=== PATIENT | female | born 1970 | race Caucasian/White ===

== ENCOUNTER 2022-10-25 11:09 | Emergency (ER) | payer OTHER, SELFPAY ==
--- NOTE | ~2022-10-25 | XR_ITS ---
EXAMINATION: XR HAND, LEFT CLINICAL INFORMATION: Third and fifth digit pain. COMPARISON: None TECHNIQUE: PA, lateral, and oblique views of the left hand. An indicator arrow points to the fifth metacarpophalangeal joint. FINDINGS: The bones and soft tissues are normal. No fracture. Alignment is anatomic. Joint spaces are maintained. No erosions or soft tissue calcifications. XR/XR hand LT min 3V IMPRESSION: Unremarkable left hand. Specifically, the third and fifth digits appear intact.
--- NOTE | 2022-10-25 11:13 | ED_ITS ---
HPI - Extremity Injury (Upper) General Chief Complaint: Extremity Injury, Upper <Verónica Castro CNP - Last Filed: 10/25/22 11:16> Stated Complaint: fall l hand inj <Verónica Castro CNP - Last Filed: 10/25/22 11:16> Time Seen by Provider: 10/25/22 11:28 <Verónica Castro CNP - Last Filed: 10/25/22 11:16> Source: patient and RN notes reviewed <Juan Miguel Matthews - Last Filed: 10/25/22 12:17> Mode of arrival: ambulatory <Juan Miguel Matthews - Last Filed: 10/25/22 12:17> Limitations: no limitations <Juan Miguel Matthews - Last Filed: 10/25/22 12:17> History of Present Illness HPI narrative: Patient reports fall 2 days ago outside her home. She reports tripping on the concrete while trying to carry a blanket. She fell with her left hand outstretched. She reports suffering abrasions to the left hand which she wrapped herself with band-aids The patient also reports striking her right check on the ground after breaking her fall with her hand. She denies any loss of consciousness and reports he does not take blood thinners for any reason. She denies injuring her face despite the fall The patient also reports right knee pain relating to the fall 2 days ago. She has been ambulatory for the last 2 days <Juan Miguel Matthews - Last Filed: 10/25/22 12:17> MD complaint: injury to: left, hand and finger <Juan Miguel Matthews - Last Filed: 10/25/22 12:17> Onset (ago): day(s) (2) <Juan Miguel Matthews - Last Filed: 10/25/22 12:17> Other Extremity Injury: left: fingers (5th) and hand (left 4th and 5th MCP) <Juan Miguel Matthews - Last Filed: 10/25/22 12:17> Other injuries: RLE (right knee) <Juan Miguel Matthews - Last Filed: 10/25/22 12:17> Handedness: right <Juan Miguel Matthews - Last Filed: 10/25/22 12:17> Place: home <[facility] - Last Filed: 10/25/22 12:17> Severity: moderate <Juan Miguel OJoseliny - Last Filed: 10/25/22 12:17> Severity scale (1-10): 4 <Juan Miguel JohnsonYuriy - Last Filed: 10/25/22 12:17> Relieving factors: movement <Juan Miguel Matthews - Last Filed: 10/25/22 12:17> Exacerbating factors: movement of extremity <Juan Miguel Matthews - Last Filed: 10/25/22 12:17> Context: fall <Juan Miguel Matthews - Last Filed: 10/25/22 12:17> Associated symptoms: denies other symptoms <Juan Miguel Matthews - Last Filed: 10/25/22 12:17> Treatments prior to arrival: bandage <Juan Miguel Matthews - Last Filed: 10/25/22 12:17> Related Data Home Medications: Previous Rx's Medication Instructions Recorded ibuprofen 600 mg tablet 600 mg PO Q6H PRN pain #20 tabs 10/25/22 <Verónica Castro CNP - Last Filed: 10/25/22 11:16> Allergies/Adverse Reactions: Allergies Allergy/AdvReac Type Severity Reaction Status Date / Time Penicillins Allergy Rash Verified 10/25/22 11:13 <Verónica Castro CNP - Last Filed: 10/25/22 11:16> Review of Systems Constitutional: Constitutional: Denies fever(s) <Juan Miguel Matthews - Last Filed: 10/25/22 12:17> Musculoskeletal: Musculoskeletal: Reports as per HPI, Denies deformity, Reports arthralgias, Reports joint swelling and Reports limited range of motion <Juan Miguel Matthews - Last Filed: 10/25/22 12:17> PMF Past Medical History Attestation statement: The following information was validated with the patient. <Juan Miguel Matthews - Last Filed: 10/25/22 12:17> Source: nursing notes reviewed <Juan Miguel Matthews - Last Filed: 10/25/22 12:17> Social History Social History: Social History Advance Directives: No <Verónica Castro CNP - Last Filed: 10/25/22 11:16> Physical Exam Vital Signs: Vital Signs: Last Vital Signs Temp 97.2 F 10/25/22 11:14 Pulse 78 10/25/22 11:14 Resp 16 10/25/22 11:14 BP 134/75 10/25/22 11:14 Pulse Ox 98 10/25/22 11:14 O2 Del Method 10/25/22 11:14 BMI result Body Mass Index 32.8 <Verónica Castro [facility] - Last Filed: 10/25/22 11:16> Vital Signs: Last Vital Signs Temp 97.2 F 10/25/22 11:14 Pulse 78 10/25/22 11:14 Resp 16 10/25/22 11:14 BP 134/75 10/25/22 11:14 Pulse Ox 98 10/25/22 11:14 O2 Del Method 10/25/22 11:14 BMI result Body Mass Index 32.8 <Juan Miguel Matthews - Last Filed: 10/25/22 12:17> Const: General: cooperative, comfortable, no acute distress, well developed, alert, awake and Physically active; No acute distress <Juan Miguel Matthews - Last Filed: 10/25/22 12:17> Orientation/consciousness: patient oriented x3 <Juan Miguel Matthews - Last Filed: 10/25/22 12:17> Limitations: no limitations <Juan Miguel Matthews - Last Filed: 10/25/22 12:17> Neck: Neck: Yes normal visual inspection and Yes full ROM <Juan Miguel Matthews - Last Filed: 10/25/22 12:17> Skin: Other: Minor abrasions to the left 4th MCP area. No active bleeding and no surrounding erythema <Juan Miguel Matthews - Last Filed: 10/25/22 12:17> Trauma: abrasion <Juan Miguel Matthews - Last Filed: 10/25/22 12:17> Wounds: no wounds <Juan Miguel Matthews - Last Filed: 10/25/22 12:17> Neuro: General: patient oriented x3 <Juan Miguel Matthews - Last Filed: 10/25/22 12:17> Extrem: Left upper extremity: normal capillary refill, elbow/forearm Details: no tenderness and no abrasions, wrist (No left wrist deformity. No edema or overlying skin changes) and hand (tender to left 4th and 5th MCP without deformity. Minimal edema); no cyanosis and no edema <Juan Miguel Matthews - Last Filed: 10/25/22 12:17> Course Course Course Narrative: This is an RME: Additional HPI, ROS, PE not included below will be deferred to primary provider. Patient is a 52 year old female who presents to [facility] emergency department for evaluation after a mechanical fall, reporting L hand pain. Fall monday night, 2 nights ago, tripped over a blanket when getting out of her car. Fell onto outstretched hand. Denies head strike. Complaining of pain to L hand; 3rd through 5th digit/ bases. CMS intact. Plan: XR left hand <Verónica Castro CNP - Last Filed: 10/25/22 11:16> Medical Decision Making Medical Decision Making MDM Narrative: 52 year old female with left hand pain after a non syncopal fall. She denies loss of consciousness and is not on any blood thinners. No fracture or dislocation on imaging. Discusses symptomatic care with the patient <Juan Miguel Matthews - Last Filed: 10/25/22 12:17> Differential Diagnosis Differential Diagnoses: The differential diagnosis associated with the presentation includes (Metacarpal fracture, metacarpal dislocation, abrasion, laceration, hand sprain) <Juan Miguel Matthews - Last Filed: 10/25/22 12:17> Acute left hand sprain <Juan Miguel Matthews - Last Filed: 10/25/22 12:17> Independent Interpretation I performed an independent interpretation of an: Plain X-Ray <Juan Miguel Matthews - Last Filed: 10/25/22 12:17> Interpretation: I independently reviewed left hand xray and agree with interpretation of radiologist. No acute fracture or dislocation of the left hand <Juan Miguel Matthews - Last Filed: 10/25/22 12:17> Radiology Impression Discussion of test interpretation with radiology: I have reviewed the radiologist's reading. <Juan Miguel Matthews - Last Filed: 10/25/22 12:17> Prescription Management I considered prescription management with: Pain Medication <Juan Miguel Matthews - Last Filed: 10/25/22 12:17> Discharge Plan Discharge Clinical Impression: Sprain and strain of left hand <Verónica Castro CNP - Last Filed: 10/25/22 11:16> Patient Disposition: Home, Self-Care <Verónica Castro CNP - Last Filed: 10/25/22 11:16> Instructions: Sprain (ED) <Verónica Castro CNP - Last Filed: 10/25/22 11:16> Additional Instructions: Use Ibuprofen 600mg every 6 hours as needed for discomfort You may also apply topical antibiotic to the abrasions and cover with a band-aid <Verónica Castro CNP - Last Filed: 10/25/22 11:16> Prescriptions: New ibuprofen 600 mg tablet 600 mg PO Q6H PRN (Reason: pain) Qty: 20 0RF <Verónica Castro CNP - Last Filed: 10/25/22 11:16>
[2022-10-25 11:14] VITALS: BP 134/75; PULSE 78; RESP 16; TEMP 36.2; O2SAT 98; BMI 32.8
== END 2022-10-25 12:21 | disposition home or self-care (01) ==
PROVIDERS: Emergency Provider Emergency Medicine
DX: S63.92XA Sprain of unspecified part of left wrist and hand, initial encounter (principal); W01.0XXA Fall on same level from slipping, tripping and stumbling without subsequent striking against object, initial encounter; Y93.9 Activity, unspecified; Y92.410 Unspecified street and highway as the place of occurrence of the external cause; Y99.9 Unspecified external cause status
CPT/HCPCS: 73130; 99282; 99284